=== PATIENT | female | born 1945 | race Caucasian/White ===

== ENCOUNTER → 2016-11-06 | Outpatient (CLI) | payer MEDICARE ==
[~2016-11-06] MED LIST: CARI350T; HYDR1TAB16
== END | disposition home or self-care (01) ==
LOC: CFH 15:48
PROVIDERS: ATTEND Internal Medicine Cardiovascular Disease
DX: I05.9 Rheumatic mitral valve disease, unspecified (principal)
CPT/HCPCS: 93306

== ENCOUNTER 2016-11-09 09:34 | Day surgery (SDC) | payer MEDICARE ==
[~2016-11-09] VITALS: Ht 154.9 cm; Wt 72.0 kg
[2016-11-09 10:15] VITALS: BP 137/86
[2016-11-09] MEDS ORDERED: ATOR80TA75 PO (10:54)
[2016-11-09] MEDS ORDERED: FURO-93 PO (10:54)
[2016-11-09] MEDS ORDERED: [UNRECOGNIZED DRUG - CODE] PO (10:56)
[2016-11-09] MEDS ORDERED: HYDR-2442 PO (10:58)
[2016-11-09] MEDS ORDERED: PROPOFOL 10 MG/ML, 20ML ONE (11:02)
== END 2016-11-09 12:10 | disposition home or self-care (01) ==
LOC: CACL 09:34
PROVIDERS: ATTEND Internal Medicine Cardiovascular Disease
DX: I34.0 Nonrheumatic mitral (valve) insufficiency (principal); I35.1 Nonrheumatic aortic (valve) insufficiency; I36.1 Nonrheumatic tricuspid (valve) insufficiency; Z95.4 Presence of other heart-valve replacement; I10 Essential (primary) hypertension; E78.5 Hyperlipidemia, unspecified; Z87.891 Personal history of nicotine dependence; I35.0 Nonrheumatic aortic (valve) stenosis; Z85.3 Personal history of malignant neoplasm of breast
CPT/HCPCS: 93312; 93321; 93325; J2704

== ENCOUNTER → 2017-01-25 | Outpatient (CLI) | payer MEDICARE ==
[~2017-01-25] MED LIST changes: +ATOR80TA75 PO; +FURO-93 PO; +HYDR-2442 PO; -HYDR1TAB16; +HYDR1TAB16 PO; +TRAZ100T15 PO; +[UNRECOGNIZED DRUG - CODE] PO
== END | disposition home or self-care (01) ==
LOC: STAR 15:04
PROVIDERS: ATTEND Internal Medicine Cardiovascular Disease
DX: I34.0 Nonrheumatic mitral (valve) insufficiency (principal)
CPT/HCPCS: 36415; 80053; 85025; 85610

== ENCOUNTER 2017-01-29 11:04 | Day surgery (SDC) | payer MEDICARE ==
[2017-01-25 16:14] LABS: ASPARTATE AMINO TRANSFERASE 25 U/L (15-37); BLOOD UREA NITROGEN 23 mg/dL (7-18)
[~2017-01-29] VITALS: Ht 154.9 cm; Wt 68.6 kg
[~2017-01-29 11:04] MED LIST changes: -TRAZ100T15 PO
[2017-01-29] MEDS ORDERED: NITROGLYCERIN 5 MG/ML, 10ML ONE (11:53)
[2017-01-29] MEDS ORDERED: HEPARIN 1,000 UNITS/ML, 10ML ONE (11:53)
[2017-01-29] MEDS ORDERED: LIDOCAINE 2%, 20ML ONE (11:53)
[2017-01-29] MEDS ORDERED: FENTANYL PF 100 MCG/2ML ONE (11:53)
[2017-01-29] MEDS ORDERED: MIDAZOLAM 1 MG/ML, 5ML ONE (11:53)
[2017-01-29] MEDS ORDERED: BIVALIRUDIN 250 MG ONE (11:53)
[2017-01-29] MEDS ORDERED: VERAPAMIL 2.5 MG/ML, 2ML ONE (11:53)
[2017-01-29] MEDS ORDERED: TICAGRELOR 90 MG TABLET ONE (11:53)
[2017-01-29] MEDS ORDERED: TRAZ100T15 PO (11:55)
[2017-01-29 12:03] VITALS: BP 148/74
[2017-01-29] MEDS ORDERED: SODIUM CHLORIDE 0.9% 1,000 ML IV SCH ×2 (12:05→13:33)
[2017-01-29] MEDS ORDERED: ATROPINE SYRINGE 0.1 MG/ML, 10ML ONE (13:03)
== END 2017-01-29 15:45 | disposition home or self-care (01) ==
LOC: CACL 11:04
PROVIDERS: ATTEND Internal Medicine Cardiovascular Disease
DX: I34.0 Nonrheumatic mitral (valve) insufficiency (principal); I35.0 Nonrheumatic aortic (valve) stenosis; I05.1 Rheumatic mitral insufficiency; I65.8 Occlusion and stenosis of other precerebral arteries; I10 Essential (primary) hypertension; E78.5 Hyperlipidemia, unspecified; Z98.890 Other specified postprocedural states; Z88.1 Allergy status to other antibiotic agents; Z88.5 Allergy status to narcotic agent; Z88.8 Allergy status to other drugs, medicaments and biological substances
CPT/HCPCS: 93458; 99156; 99157; C1894; J0461; J1644; J2250; J3010; J3490; Q9967; 36415; 80053; 85025; 85610; J0583